=== PATIENT | male | born 1980 | race Hispanic/Latino ===

== ENCOUNTER 2019-02-04 10:07 | Emergency (ER) | payer SELFPAY ==
[2019-02-04 10:35] LABS: Bilirubin Negative (Negative); Blood, Urine Negative (Negative); Glucose, Urine (Dipstick) Negative (Negative); Leukocyte Negative (Negative); Nitrite Negative (Negative); Protein, Urine (Dipstick) Negative (Neg-Trace); Urobilinogen 0.2 mg/dL (Less than 2)
[2019-02-04 10:37] LABS: Clarity Clear (Clear)
[2019-02-04] MEDS ORDERED: Azithromycin 250 MG TAB ONE (10:42)
[2019-02-04] MEDS ORDERED: Lidocaine 1% PF 5 ML VIAL ONE (10:43)
[2019-02-04] MEDS ORDERED: cefTRIAXone\\ROCEPHIN 250 MG VIAL ONE (10:43)
[2019-02-06 21:29] LABS: Chlam.trachomatis by PCR,Urine Not Detected (NotDetected)
== END 2019-02-04 11:19 | disposition home or self-care (01) ==
LOC: ERS 10:07
DX: R30.0 Dysuria (principal)
CPT/HCPCS: 81003; 87491; 87591; 96372; 99283; J0696; J2001